=== PATIENT | female | born 2000 | race American Indian/Alaskan Native ===

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

== ENCOUNTER 2021-01-28 13:47 | Outpatient (CLI) | payer MEDICAID ==
[2021-01-28] MEDS ORDERED: LACTATED RINGERS 1,000 ML IV SCH (14:15)
[2021-01-28] MEDS ORDERED: ONDANSETRON 4 MG/2 ML INJ IM ONE (14:42)
[2021-01-28 15:03] LABS: Bacteria,Urine 2+ /HPF (Negative); Bilirubin,Urine NEG (Negative); Blood,Urine NEG (Negative); Color,Urine Yellow (Yellow); Mucus,Urine 1+ /HPF
[2021-01-28 15:10] VITALS: BP 120/59
[2021-01-28 16:04] LABS: Hematocrit 32.3 % (30.3-42.9); Mean Corpuscular HGB Conc 34 % (30-34); Mean Corpuscular Volume 94 fl (79-97); Platelet Count 213 K/mm3 (140-440); Red Blood Count 3.44 M/mm3 (3.65-5.03); Red Cell Distribution Width 13.4 % (13.2-15.2)
[2021-01-28 16:23] LABS: Alanine Aminotransferase 9 units/L (7-56); Albumin 2.8 g/dL (3.9-5); Blood Urea Nitrogen 7 mg/dL (7-17); Calcium 8.3 mg/dL (8.4-10.2); Hemolysis Index 12
[2021-01-28 16:33] LABS: BUN/Creatinine Ratio 14
[2021-01-28] MEDS ORDERED: cefTRIAXone/NS 1 GM/50 ML 1 GM/50 ML BAG IV ONE (17:17)
[2021-01-29] MEDS ORDERED: FLUCONAZOLE 200 MG TAB PO ONE (17:00)
== END 2021-01-28 17:20 | disposition home or self-care (01) ==
LOC: TRG 13:47 → APU 13:51 → TRG 17:20
PROVIDERS: ATTEND Obstetrics & Gynecology
DX: O21.2 Late vomiting of pregnancy (principal); O26.893 Other specified pregnancy related conditions, third trimester; R19.7 Diarrhea, unspecified; O47.03 False labor before 37 completed weeks of gestation, third trimester; Z3A.32 32 weeks gestation of pregnancy; Z87.891 Personal history of nicotine dependence
CPT/HCPCS: 36415; 59025; 80053; 81001; 85027; 87086; 96361; 96365; 96372; J0696; J2405; J7120; 96360